=== PATIENT | female | born 1960 | race Hispanic/Latino ===

== ENCOUNTER 2024-05-22 23:42 | Emergency (ER) | payer OTHER ==
[~2024-05-22] VITALS: Ht 154.9 cm; Wt 114.8 kg
--- NOTE | 2024-05-22 23:47 | NUR ---
UA CUP PROVIDED
--- NOTE | 2024-05-23 00:27 | ERN ---
ED Note History of Present Illness Stated Complaint: URINARY PAIN AND FREQUENCY Chief Complaint: Urinary Frequency Time Seen by MD: 00:15 Time Seen by Midlevel: 00:15 Dictation: Patient is a 63-year-old female with a history of hypertension, cholecystectomy who presents to the emergency department with complaints of epigastric abdominal pain, suprapubic pain, decreased urination onset yesterday at noon. Patient denies any nausea or vomiting. Denies diarrhea, denies back pain, fevers. Allergies: Coded Allergies: No Known Allergies (Verified Allergy, 02/21/12) Past Medical History Past Medical History: Hypertension Surgical History: Cholecystectomy RN Note Reviewed/Agreed w/PFSH: Yes Review of System Dictation Constitutional: Negative for fever,chills, and weight loss Eyes: Negative for injury, pain,redness, and discharge ENT: Negative for injury,pain or swelling Cardiovascular: Negative for chest pain, palpitations, and edema Respiratory: Negative for shortness of breath, cough, and wheezing, Abdomen/GI: Negative for nausea, vomiting, diarrhea, and constipation positive for abdominal pain Back: Negative for injury and pain : Negative for injury, bleeding and discharge positive for painful urination MS/Extremity: Negative for injury and deformity Skin: Negative for rash, and discoloration Neuro: Negative for headache, weakness, numbness, tingling, and seizure Psych: Negative for suicide ideation, homicidal ideation, and hallucinations Initial Vital Sign VS Vital Signs Date Time Temp Pulse Resp B/P (MAP) Pulse Ox O2 Delivery O2 Flow Rate FiO2 05/22/24 23:43 96.8 78 16 193/87 97 Room Air Physical Exam Dictation Vital Signs reviewed General Appearance: Alert, oriented x 3, no acute distress, well developed, nourished. Head and Face: non-traumatic. Eyes: PERRL, pink conjunctivas, eyelid no trauma, anterior chamber with arcus senilis. Ears: Pinnas intact and no signs of trauma or erythema ear canals clear and no discharge TM no erythema Nose: No discharge, no bleeding. Oropharynx: Mouth normal, tongue pink. pharynx clear,no erythema, tonsils no exudates, no abscesses noted, mucous membrane moist Neck: Supple, non-tender, no thyromegaly, no masses, no JVD, no bruits Breast:Deferred Chest:No tenderness, no crepitus, no paradoxical movement, no retractions Lungs:Clear, well-ventilated, symmetric, no rales, no wheezing, no rhonchi, no stridor, good breath sounds bilaterally Heart: Regular rate, regular rhythm, no murmur, no gallops Vascular: no peripheral edema, Abdomen: Soft, positive bowel sounds, nondistended, no guarding, nontender, no rebound, no masses no hepatomegaly, no splenomegaly, no Pitt's sign, no hernias. Rectal: Deferred Genital: Deferred Neurological: Normal speech, motor function intact, sensory function intact Musculoskeletal: Neck nontender, full range of motion, back nontender, full range of motion, Extremities: nontender, full range of motion Skin: Color pink, dry, no turgor, no rash, no lacerations, no abrasions, no contusions. Lymphatic: Deferred Results (Laboratory/Radiology) Laboratory/Radiology Laboratory Tests Test 05/23/24 00:40 05/23/24 00:45 Urine Color LIGHT-YELLOW (YELLOW) Urine Appearance CLOUDY (CLEAR) H Urine pH 5.5 (5.0-8.0) Urine Specific [place] 1.020 (1.001-1.031) Urine Protein NEGATIVE mg/dL (NEGATIVE) Urine Glucose (UA) NEGATIVE mg/dL (NEGATIVE) Urine Ketones NEGATIVE mg/dL (NEGATIVE) Urine Occult Blood +- (TRACE) (NEGATIVE) H Urine Nitrate NEGATIVE (NEGATIVE) Urine Bilirubin NEGATIVE mg/dL (NEGATIVE) Urine Urobilinogen 0.2 mg/dL (0.2-1.0) Urine Leukocyte Esterase 250 Vu/uL (NEGATIVE) H Urine RBC 2-5 /HPF (0-1) H Urine WBC 11-25 /HPF (0-1) H Urine Squamous Epithelial Cells MANY /HPF (0-2) Urine Bacteria MOD /HPF (None Seen) White Blood Count 9.3 K/uL (4.8-10.8) Red Blood Count 4.34 MIL/uL (4.00-5.50) Hemoglobin 12.9 g/dL (12.0-16.0) Hematocrit 40.4 % (36-48) Mean Corpuscular Volume 93.1 fL (79-99) Mean Corpuscular Hemoglobin 29.7 pg (27.0-33.0) Mean Corpuscular Hemoglobin Concent 31.9 g/dL (32.0-36.0) L Red Cell Distribution Width 13.6 % (11.0-15.5) Platelet Count 181 K/uL (130-400) Mean Platelet Volume 10.7 fL (7.5-10.5) H Immature Granulocyte % (Auto) 0.3 % (0-1) Neutrophils (%) (Auto) 73.9 % (40.0-77.0) Lymphocytes (%) (Auto) 17.6 % (21.0-51.0) L Monocytes (%) (Auto) 6.3 % (3.0-13.0) Eosinophils (%) (Auto) 1.7 % (0.0-8.0) Basophils (%) (Auto) 0.2 % (0.0-5.0) Neutrophils # (Auto) 6.9 K/uL (1.8-7.7) Lymphocytes # (Auto) 1.6 K/uL (1.0-4.8) Monocytes # (Auto) 0.6 K/uL (0.1-1.0) Eosinophils # (Auto) 0.16 K/uL (0.00-0.70) Basophils # (Auto) 0.02 K/uL (0.00-0.20) Absolute Immature Granulocyte (auto 0.03 K/uL (0-1) Nucleated Red Blood Cells 0.0 % (0.0-0.19) Sodium Level 138 mmol/L (136-145) Potassium Level 3.6 mmol/L (3.5-5.1) Chloride Level 104 mmol/L (101-111) Carbon Dioxide Level 31 mmol/L (21-32) Blood Urea Nitrogen 13 mg/dL (7-18) Creatinine 0.8 mg/dL (0.5-1.0) Glomerular Filtration Rate Calc 84 mL/min (>90) Random Glucose 123 mg/dL (70-105) H Total Calcium 8.7 mg/dL (8.5-10.1) Total Bilirubin 0.4 mg/dL (0.2-1.0) Direct Bilirubin 0.1 mg/dL (0.0-0.3) Aspartate Amino Transf (AST/SGOT) 19 U/L (10-37) Alanine Aminotransferase (ALT/SGPT) 25 U/L (12-78) Alkaline Phosphatase 90 U/L (50-136) Total Creatine Kinase 78 U/L (21-232) Troponin I High Sensitivity 6 ng/L (4-50) Total Protein 7.6 g/dL (6.0-8.3) Albumin 3.3 g/dL (3.5-5.0) L Lipase 49 U/L (16-77) Labs Reviewed?: Yes EKG: (+) rhythm (Sinus rhythm) EKG Comment: Date:05/23/2024 Time:53 Ventricular rate:77 UT interval:142 QRS duration: QT/QTc:443 EKG interpretation:Sinus rhythm Reviewed by ED Attending no slightly ED Course ED Course Orders Procedure Category Date Status Time Cbc With Differential LAB 05/22/24 Complete 23:47 Basic Metabolic Panel LAB 05/22/24 Complete 23:47 Urinalysis Profile LAB 05/22/24 Complete 23:47 Lipase LAB 05/23/24 Complete 00:24 Hepatic Function Panel LAB 05/23/24 Complete 00:24 12 Lead Ekg Tracing- EKG 05/23/24 Complete Technical 00:24 Troponin I High LAB 05/23/24 Complete Sensitivity 00:24 Creatine Kinase, Total LAB 05/23/24 Complete 00:24 0.9%Nacl 1000ml (Ns PHA 05/23/24 In Process 1000ml) 00:30 Pantoprazole 40mg Inj PHA 05/23/24 Complete (Protonix 40mg Inj 00:30 Culture Urine KIMMY 05/23/24 In Process 01:23 Ceftriaxone 1g Vial PHA 05/23/24 In Process (Rocephine 1g Inj) 02:00 Current Medications Medications (Trade) Dose Ordered Sig/Zonia Route PRN Reason Start Time Stop Time Status Last Admin Dose Admin Ceftriaxone Sodium (ROCEphine 1G INJ) 1 gm ONCE ONCE IVPB 05/23/24 02:00 05/23/24 02:01 Pantoprazole Sodium (PROTonix 40MG INJ) 40 mg ONCE ONCE IVP 05/23/24 00:30 05/23/24 00:31 DC Sodium Chloride 1,000 ml @ 125 mls/hr ONCE ONCE IV 05/23/24 00:30 05/23/24 08:29 Vital Signs Date Time Temp Pulse Resp B/P (MAP) Pulse Ox O2 Delivery O2 Flow Rate FiO2 05/22/24 23:43 96.8 78 16 193/87 97 Room Air Medical Decision Making MDM MDM Patient is a 63-year-old female with a history of hypertension, cholecystectomy who presents to the emergency department with complaints of epigastric abdominal pain, suprapubic pain, decreased urination onset yesterday at noon. Patient denies any nausea or vomiting. Denies diarrhea, denies back pain, fevers. CBC showed no leukocytosis, no anemia, chemistry showed no electrolyte imbalance, negative troponin, negative lipase. Urinalysis positive for leukocyte esterase. Patient will be treated for UTI. Patient with nontoxic appearance. Nontender abdomen. Will be discharged to follow up with PCP. Differential diagnosis: UTI, gastritis, gastroenteritis, electrolyte imbalance, ACS Need for hospitalization: Patient does not meet criteria for hospitalization. There are no social concerns with this patient. DX & DISP Disposition: Discharge Departure Impression: Primary Impression: UTI (urinary tract infection) Condition: Stable Scripts Nitrofurantoin Monohyd/M-Cryst (Macrobid 100 mg Capsule) 100 Mg Capsule 1 CAP PO BID for 5 Days, #10 CAP 0 Refills Prov: NAYELI LIGHT 05/23/24 Additional Instructions: FOLLOW-UP WITH PRIMARY CARE PROVIDER IN 1 TO 2 DAYS. TAKE MEDICATIONS DIRECTED HERE IN THE EMERGENCY ROOM. OKAY TO CONTINUE HOME MEDICATIONS UNLESS OTHERWISE DISCUSSED DURING YOUR VISIT IN THE EMERGENCY ROOM TODAY. RETURN TO YOUR NEAREST EMERGENCY ROOM IF SYMPTOMS WORSEN OR IF THERE IS NO IMPROVEMENT. CALL 911 IF YOU NEED IMMEDIATE ASSISTANCE. TAKE TYLENOL OR MOTRIN [id number] NEEDED AND IF NO CONTRAINDICATIONS ARE PRESENT. INCREASE ORAL HYDRATION. A WOUND CULTURE OR URINE CULTURE WAS ORDERED HERE IN THE EMERGENCY ROOM DEPARTMENT PLEASE FOLLOW-UP WITH PRIMARY CARE PROVIDER AND ADVISE THEM TO GET REPEAT PORTS FROM OUR FACILITY. IF YOU HAD ANY KIMBERLY WRAP/SPLINTS THAT WERE APPLIED HERE, PLEASE DO NOT REMOVE THEM UNTIL YOU SEE YOUR PRIMARY CARE OR SPECIALTY. Referrals: LADY GATICA (PCP) Time of Disposition: 01:55 I have reviewed the case, and I agree with, Diagnosis and Plan NAYELI LIGHT May 23, 2024 00:27
--- NOTE | 2024-05-23 00:56 | EKG ---
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
[2024-05-23 01:01] LABS: BASOPHILS # (AUTO) 0.02 K/uL (0.00-0.20); BASOPHILS % (AUTO) 0.2 % (0.0-5.0); EOSINOPHILS # (AUTO) 0.16 K/uL (0.00-0.70); EOSINOPHILS % (AUTO) 1.7 % (0.0-8.0); HEMATOCRIT 40.4 % (36-48); IMMATURE GRANULOCYTE ABSOLUTE 0.03 K/uL (0-1); LYMPHOCYTES # (AUTO) 1.6 K/uL (1.0-4.8); LYMPHOCYTES % (AUTO) 17.6 % (21.0-51.0); MEAN CORPUSCULAR HEMOGLOBIN 29.7 pg (27.0-33.0); MEAN CORPUSCULAR HGB CONC 31.9 g/dL (32.0-36.0); MEAN CORPUSCULAR VOLUME 93.1 fL (79-99); MONOCYTES # (AUTO) 0.6 K/uL (0.1-1.0); MONOCYTES % (AUTO) 6.3 % (3.0-13.0); NEUTROPHILS # (AUTO) 6.9 K/uL (1.8-7.7); NEUTROPHILS % (AUTO) 73.9 % (40.0-77.0); PLATELET COUNT (AUTO) 181 K/uL (130-400); RED BLOOD CELL COUNT(AUTO) 4.34 MIL/uL (4.00-5.50); RED CELL DISTRIBUTION WIDTH 13.6 % (11.0-15.5); WHITE BLOOD COUNT (AUTO) 9.3 K/uL (4.8-10.8)
[2024-05-23 01:10] LABS: CREATININE 0.8 mg/dL (0.5-1.0); POTASSIUM 3.6 mmol/L (3.5-5.1)
[2024-05-23 01:18] LABS: APPEARANCE,URINE CLOUDY (CLEAR); BILIRUBIN,URINE NEGATIVE (NEGATIVE); COLOR,URINE LIGHT-YELLOW (YELLOW); GLUCOSE, URINE (UA) NEGATIVE (NEGATIVE); KETONES,URINE NEGATIVE (NEGATIVE); LEUKOCYTE ESTERASE ,URINE 250 Leu/uL (NEGATIVE); NITRATE,URINE NEGATIVE (NEGATIVE); PH,URINE 5.5 (5.0-8.0); PROTEIN,URINE NEGATIVE (NEGATIVE); UROBILINOGEN,URINE 0.2 mg/dL (0.2-1.0)
[2024-05-23 01:22] LABS: ADD UA MICROSCOPIC YES
[2024-05-23 01:35] LABS: BACTERIA,URINE MOD /HPF (None Seen); MUCUS,URINE RARE LPF (None Seen); SQUAMOUS EPITHELIAL CELL,UR MANY /HPF (0-2)
[2024-05-23 01:46] LABS: ALBUMIN 3.3 g/dL (3.5-5.0); BILIRUBIN,DIRECT 0.1 mg/dL (0.0-0.3); BILIRUBIN,TOTAL 0.4 mg/dL (0.2-1.0); TOTAL PROTEIN, SERUM 7.6 g/dL (6.0-8.3)
[2024-05-23] MEDS ORDERED: NITR100C4 PO (01:55)
--- NOTE | 2024-05-23 02:02 | NUR ---
DELAY IN DISCHARGE. PT PENDING MEDICATIONS
[2024-05-23 02:22] VITALS: BP 165/73; PULSE 74; RESP 16; TEMP 98.5; O2SAT 96
[2024-05-23] MEDS: PANTOPrazole 40 MG/VIAL IVP ONE (02:31)
[2024-05-23] MEDS: 0.9%NACL 1000ML 1,000 ML IV ONE (02:31)
[2024-05-23] MEDS: cefTRIAXone 1G VIAL IVPB ONE (02:31)
[2024-05-23] MEDS: oxyCODONE/aceTAMIN 5/325MG TAB PO ONE (03:18)
== END 2024-05-23 04:31 | disposition home or self-care (01) ==
LOC: EDH 23:42
DX: N39.0 Urinary tract infection, site not specified (principal); I10 Essential (primary) hypertension; Z90.49 Acquired absence of other specified parts of digestive tract
CPT/HCPCS: 99284; 82550; 80076; 84484; 80048; 83690; 85025; 87086; 81001; 36415; 96374; 96375; 93005; J7030; J0696; J2470